=== PATIENT | male | born 1935 | race Caucasian/White ===

== ENCOUNTER → 2021-07-26 | Outpatient (CLI) | payer MEDICARE | LOC: COL.RAD 13:14 | DX: J98.11 Atelectasis (principal) ==

== ENCOUNTER 2023-07-06 10:32 | Day surgery (SDC) | payer MEDICARE ==
[~2023-07-06] VITALS: Ht 180.3 cm; Wt 84.1 kg
[~2023-07-06 10:32] MED LIST: ASPIRIN 32325 MG/TAB PO; DECADRON 4MG TAB4 MG PO; FOLIC ACID 11 MG/TA1 PO; LR 1,000 ML IV SCH; MEVACOR 20M20 MG/TAB PO; TENORMIN100 MG PO; VITAMIN B12 781 TAB PO
[2023-07-06] MEDS ORDERED: fentaNYL 50 MCG/ML 2 ML VIAL ONE ×2 (10:46→13:43)
[2023-07-06] MEDS ORDERED: Glycopyrrolate 0.2 MG/ML 1 ML VIAL ONE (10:49)
[2023-07-06] MEDS ORDERED: dexAMETHasone 10 MG/ML VIAL ONE (10:49)
[2023-07-06] MEDS ORDERED: NS 10 ML IV ONE (10:49)
[2023-07-06] MEDS ORDERED: Ondansetron 4 MG/2 ML VIAL ONE (10:49)
[2023-07-06] MEDS ORDERED: Lidocaine PF 2% (20 MG/ML) 5 ML VIAL ONE (10:49)
[2023-07-06 13:26] VITALS: BP 121/71; PULSE 66; TEMP 97.1
[2023-07-06] MEDS ORDERED: Topical Skin Adhesive 1 EACH (1 ML) TOP ONE (14:08)
[2023-07-06 14:33] VITALS: BP 84/48; PULSE 70; TEMP 96.9
[2023-07-06 14:45] VITALS: BP 94/58; PULSE 58
[2023-07-06 15:00] VITALS: BP 98/56; PULSE 70
[2023-07-06 15:15] VITALS: BP 113/70; PULSE 68
--- NOTE | 2023-07-06 15:30 | NUR ---
1433 RETURNS TO ROOM 1 PER CART FROM OR. PATIENT VERY DROWSY, AROUSES TO VERBAL STIMULI BY OPENING EYES SLIGHTLY. HOB ELEVATED 30 DEGREES. RESP UNLAORED. O2 AT 2L/NC. VITAL SIGNS OBTAINED. INCISIONS X 2 SITES. RIGHT NECK AND RIGHT UPPER CHEST INTACT WITHOUT REDNESS OR DRAINAGE. 1445 PATIENT AROUSES TO VERBAL ATIMULI. OPENS EYES, FAMILIARIZED WITH SURROUNDINGS 1500 AROUSES SPONTANEOUSLY. CONVERSES APPROPRIATELY. DENIES PAIN 1510 AWAKE, ALERT. HOB ELEVATED 60 DEGREES. TOLERATES PO WATER AND PUDDING WITHOUT NAUSEA. DISCHARGE INSTRUCTIONS REVIEWED. PATIENT VERBALIZES UNDERSTANDING. COPY PROVIDED IN DISCHARGE FOLDER 1522 SITS ON EDGE OF CART. DRESSES WITH MINIMAL ASSIST FROM THIS NURSE
== END 2023-07-06 15:30 | disposition home or self-care (01) ==
LOC: SDCO 10:32
DX: C34.91 Malignant neoplasm of unspecified part of right bronchus or lung (principal)
CPT/HCPCS: C1788; J0665; J0690; J1100; J1644; J2405; J2704; J3010; J7120

== ENCOUNTER → 2023-07-14 | Outpatient (CLI) | payer MEDICARE ==
[~2023-07-14] VITALS: Ht 180.3 cm; Wt 86.1 kg
[~2023-07-14] MED LIST changes: -LR 1,000 ML IV SCH
[2023-07-14 11:12] VITALS: BP 104/63; PULSE 74; TEMP 97.7
[2023-07-14 12:45] VITALS: BP 93/66; PULSE 74
--- NOTE | 2023-07-14 13:00 | NUR ---
Dr Samuels into talk with pt. Pt has small pneumo. O2 sat placed on pt for continous monitoring. O2 sat 100% on room air. Repeat chest xray in one hour.
[2023-07-14 14:10] VITALS: BP 91/61; PULSE 70
--- NOTE | 2023-07-14 14:15 | NUR ---
Dr Samuels in to talk with pt. Reports pneumo is no larger and feels it is scarred in. Pt reports he feels good. Dr Samuels to send pt home. Pt given orange juice and muffin to eat.
--- NOTE | 2023-07-14 14:40 | NUR ---
Pt out to car per wheelchair. Pt up and into car with standby assistance. Copy of discharge instructions with pt. Pt verbalized understanding.
[2023-07-14 19:49] LABS: PLEURAL FLUID RBC 54000 /mm3 (0-0); PLEURAL FLUID WBC 167 /mm3
[2023-07-14 20:03] LABS: PLEURAL FLUID APPEARANCE CLOUDY; PLEURAL FLUID COLOR RED
== END ==
LOC: COL.RAD 10:51
PROVIDERS: Internal Medicine
DX: J93.9 Pneumothorax, unspecified (principal); C34.31 Malignant neoplasm of lower lobe, right bronchus or lung
CPT/HCPCS: 19804

== ENCOUNTER 2023-09-05 14:20 | Emergency (ER) | payer MEDICARE ==
[~2023-09-05] VITALS: Ht 180.3 cm; Wt 82.7 kg
[2023-09-05 14:31] VITALS: TEMP 97.5
[2023-09-05 14:56] LABS: BASO % 0.2 % (0.0-2.0); GRAN % 88.7 % (42.2-75.2); LYMPH # 0.5 K/mm3 (1.2-3.4); LYMPH % 8.1 % (20.0-51.0); MEAN CELL VOLUME 100 fl (80.0-100.0); MEAN CORPUSCULAR HGB CONC 32 g/dl (33.0-37.0); MONO # 0.1 K/mm3 (0.1-0.6); MONO % 2.5 % (1.7-9.3); PLATELET COUNT 372 K/mm3 (130-400); RED BLOOD COUNT 2.65 M/mm3 (4.20-5.60); REDCELL DISTRIBUTION WIDTH-CV 22.3 % (11.5-14.5)
[2023-09-05 14:58] LABS: HEMATOCRIT 26.6 % (42.0-52.0); HEMOGLOBIN 8.4 g/dl (13.5-18.0); MEAN CORPUSCULAR HEMOGLOBIN 32 pg (27-31)
[2023-09-05] MEDS ORDERED: NS 1,000 ML IV SCH (15:00)
[2023-09-05 15:07] LABS: ALBUMIN 3.2 g/dL (3.4-4.8); BILIRUBIN,TOTAL 0.6 mg/dL (0.2-1.2); CALCIUM 8.9 mg/dL (8.4-10.2); CREATININE, serum 1.01 mg/dL (0.72-1.25); POTASSIUM 4.2 mEq/L (3.5-4.5); TOTAL PROTEIN 6.7 g/dl (6.2-8.1)
[2023-09-05] MEDS ORDERED: Iohexol 300 - 100 ML VIAL IV ONE (15:40)
[2023-09-05] MEDS ORDERED: NS 100 ML IV SCH (15:40)
[2023-09-05 15:45] LABS: COLLECTION METHOD CATHETER
[2023-09-05 15:49] LABS: URINE APPEARANCE CLEAR (CLEAR/HAZY); URINE BLOOD NEGATIVE (NEGATIVE); URINE COLOR YELLOW (YELLOW); URINE GLUCOSE NEGATIVE (NEGATIVE); URINE KETONE NEGATIVE (NEGATIVE); URINE NITRATE NEGATIVE (NEGATIVE); URINE PROTEIN(semi-quant) NEGATIVE (NEGATIVE); URINE UROBILINOGEN 0.2 E.U/dL (0.2-1.0)
[2023-09-05 17:29] VITALS: BP 115/72; PULSE 70
== END 2023-09-05 17:33 | disposition home or self-care (01) ==
LOC: COL.ER 14:20
PROVIDERS: Family Medicine
DX: I48.92 Unspecified atrial flutter (principal); Z87.891 Personal history of nicotine dependence; Z79.01 Long term (current) use of anticoagulants
CPT/HCPCS: J7030; Q9967